=== PATIENT | male | born 1975 | race Caucasian/White ===

== ENCOUNTER 2024-07-26 00:45 | Day surgery (SDC) | payer OTHER, SELFPAY ==
[2024-07-19 09:23] VITALS: BMI 32.1
[2024-07-26 09:46] VITALS: BP 146/104; PULSE 112; RESP 18; TEMP 36.1; O2SAT 100; BMI 30.7
[2024-07-26] MEDS: LACTATED RINGERS 1,000 ML 150 ML IV CONT (09:54)
[2024-07-26 09:59] LABS: Glucose Point of Care 143 mg/dl (65-105)
--- NOTE | 2024-07-26 10:13 | P.PNAN_ITS ---
Anes - Initial Pre Proc Eval Procedure: Operation Date: 07/26/24 11:00 Proposed Procedures p Screening Colonoscopy - Claudio Lund MD Date/Time: 07/26/24 10:13 Surgeon: Claudio Lund MD Pre Op Diagnosis: screening colon Patient Data Age: 49 Gender: M Height: 1.88 m Weight: 108.5 kg Last Vital Signs Temp 97 F L 07/26/24 09:46 Pulse 112 H 07/26/24 09:46 Resp 18 07/26/24 09:46 BP 146/104 H 07/26/24 09:46 Pulse Ox 100 07/26/24 09:46 O2 Del Method Room Air 07/26/24 09:46 Allergies Allergy/AdvReac Type Severity Reaction Status Date / Time No Known Allergies Allergy Verified 07/26/24 09:45 Home Medications ?Medication ?Instructions ?Recorded ?Confirmed ?Type blood-glucose meter (Accu-Chek #1 ea 02/22/23 01/29/24 Rx Guide Glucose Meter) blood sugar diagnostic (Accu-Chek #100 ea 05/19/23 01/29/24 Rx Guide test strips) empagliflozin 10 mg tablet 10 mg PO DAILY #30 tabs 01/26/24 07/26/24 Rx (Jardiance) lancets (Accu-Chek Softclix #200 ea 01/26/24 01/29/24 Rx Lancets) metformin 500 mg tablet See Rx Instructions PO .COMPLEX 04/22/24 07/26/24 Rx #90 tabs citalopram 20 mg tablet See Rx Instructions .Route 07/10/24 07/26/24 Rx .COMPLEX #90 tabs lisinopril 40 mg tablet See Rx Instructions .Route 07/10/24 07/26/24 Rx .COMPLEX #90 tabs amlodipine 5 mg tablet 5 mg PO DAILY #90 tabs 07/12/24 07/26/24 Rx fenofibrate 54 mg tablet See Rx Instructions .Route 07/24/24 07/26/24 Rx .COMPLEX #90 tabs Laboratory Tests 07/26/24 09:56 POC Capillary Glucose 143 H mg/dl (65-105) Patient hx anesthesia problems: none Family hx anesthesia problems: none Results Review: All pre-operative results and documents have been reviewed as part of the pre- operative evaluation. [facility] Past Medical History Medical History Anxiety Diabetes HLD (hyperlipidemia) Hypertension Paronychia Family History Family History Mother Family history of suicide, Onset Age: 30 Family history of gastrointestinal disorder, Onset Age: 30 Patient's mother is , Onset Age: 30 Father Family history of allergic disorder Family history of diabetes mellitus in first degree relative Other Diabetes mellitus Family history of malignant neoplasm Hypertension Social History Social History (Updated 08/29/22 @ 16:29 by Ashley Romo CMA) Smoking status: Never smoker Second hand tobacco smoke exposure: No Alcohol intake: current Alcohol use details: 1 drink a month Substance use: never Substance use type: does not use Lack of Transportation: No Lack of Food: Never True Current Housing: I Have Housing Concerned About Future Housing: No Difficulty Paying Gas/Electric Bills: No Difficulty Paying for Meds: No Currently Unemployed: No Education: Bachelor's Degree Difficulty w/ Childcare or Family Care: No Living arrangements: with family Occupation/Education: occupation Gender identity (if verbalized by the patient): Male Spiritual care concerns: No Agree to blood products: No Anes - Eval Final PreProcedure Day of Procedure 07/26/24 10:13 Patient weight: obese Heart: regular rate and rhythm Lungs: clear to auscultation Airway: Mallampati scale class II Neurological: alert and oriented Last oral intake: >/= 8 hours ASA classification: III Emergent: no Anesthetic plan: proceed Anesthesia type and monitoring: general GIVS and standard monitoring Results Review: All pre-operative results and documents have been reviewed as part of the pre- operative evaluation. Informed Consent: The patient's anesthetic plan and its attendant risks and benefits were discussed with the patient/family/POA. Questions were solicited and answers provided to the satisfaction of the patient/family/POA.
--- NOTE | 2024-07-26 10:32 | PM.HPGS ---
History of Present Illness History of Present Illness Consent: Risks, benefits, and alternatives have been discussed and questions answered. Patient agrees to proceed with procedure. Chief complaint: screening colon Narrative: Cruz Bond is a 49 year old male here for first screening colonoscopy Review of Systems Review of Systems: All systems reviewed & are unremarkable except as noted in HPI and below PMFSH Past Medical History Medical History (Updated 07/26/24 @ 10:32 by Claudio Lund MD) Colon cancer screening Paronychia HLD (hyperlipidemia) Diabetes Hypertension Anxiety Family History Family History Mother Family history of suicide, Onset Age: 30 Family history of gastrointestinal disorder, Onset Age: 30 Patient's mother is , Onset Age: 30 Father Family history of allergic disorder Family history of diabetes mellitus in first degree relative Other Diabetes mellitus Family history of malignant neoplasm Hypertension Social History Social History (Updated 08/29/22 @ 16:29 by Ashley Romo [facility]) Smoking status: Never smoker Second hand tobacco smoke exposure: No Alcohol intake: current Alcohol use details: 1 drink a month Substance use: never Substance use type: does not use Lack of Transportation: No Lack of Food: Never True Current Housing: I Have Housing Concerned About Future Housing: No Difficulty Paying Gas/Electric Bills: No Difficulty Paying for Meds: No Currently Unemployed: No Education: Bachelor's Degree Difficulty w/ Childcare or Family Care: No Living arrangements: with family Occupation/Education: occupation Gender identity (if verbalized by the patient): Male Spiritual care concerns: No Agree to blood products: No Meds Home Medications and Allergies Home Medications ?Medication ?Instructions ?Recorded ?Confirmed ?Type blood-glucose meter (Accu-Chek #1 ea 02/22/23 01/29/24 Rx Guide Glucose Meter) blood sugar diagnostic (Accu-Chek #100 ea 05/19/23 01/29/24 Rx Guide test strips) empagliflozin 10 mg tablet 10 mg PO DAILY #30 tabs 01/26/24 07/26/24 Rx (Jardiance) lancets (Accu-Chek Softclix #200 ea 01/26/24 01/29/24 Rx Lancets) metformin 500 mg tablet See Rx Instructions PO .COMPLEX 04/22/24 07/26/24 Rx #90 tabs citalopram 20 mg tablet See Rx Instructions .Route 07/10/24 07/26/24 Rx .COMPLEX #90 tabs lisinopril 40 mg tablet See Rx Instructions .Route 07/10/24 07/26/24 Rx .COMPLEX #90 tabs amlodipine 5 mg tablet 5 mg PO DAILY #90 tabs 07/12/24 07/26/24 Rx fenofibrate 54 mg tablet See Rx Instructions .Route 07/24/24 07/26/24 Rx .COMPLEX #90 tabs Allergies Allergy/AdvReac Type Severity Reaction Status Date / Time No Known Allergies Allergy Verified 07/26/24 09:45 Vital Signs Vital Signs - 24 hr 07/26/24 09:46 Temperature 97 F L Pulse Rate 112 H Respiratory Rate 18 Blood Pressure 146/104 H Pulse Oximetry 100 Oxygen Delivery Room Air Exam Const: General: comfortable and no acute distress HENMT: Face/Nose/Sinus: Normal nares present Eyes: General: appearance normal, both eyes and all related structures Neck: Neck: no JVD Resp: Auscultation: clear to auscultation bilaterally Cardio: Rate: regular rate Rhythm: regular rhythm GI: Inspection: non-distended GI Palp: Yes Soft to palpation Skin: General skin exam: normal color Neuro: Speech: normal speech Extrem: General: normal to inspection Psych: Mental Status: mental status grossly normal Assessment and Plan Assessment and plan (1) Colon cancer screening: Code(s): Z12.11 - Encounter for screening for malignant neoplasm of colon Status: Acute Assessment and Plan: colonoscopy
[2024-07-26 10:45] VITALS: BP 127/91; PULSE 98; RESP 18; O2SAT 99
[2024-07-26 10:55] VITALS: BP 115/73; PULSE 93; RESP 16; O2SAT 97
[2024-07-26 11:05] VITALS: BP 137/83; PULSE 92; RESP 18; O2SAT 98
== END 2024-07-26 11:20 | disposition home or self-care (01) ==
PROVIDERS: PCP Family Medicine; Referring Provider Student in an Organized Health Care Education/Training Program; Visit Provider Internal Medicine Gastroenterology
PROC: 0DJD8ZZ Inspection of Lower Intestinal Tract, Via Natural or Artificial Opening Endoscopic (ICD-10-PCS; CPT 45378; principal; 2024-07-26 11:00)
DX: Z12.11 Encounter for screening for malignant neoplasm of colon (principal); K64.8 Other hemorrhoids; E11.9 Type 2 diabetes mellitus without complications; E66.9 Obesity, unspecified; Z68.30 Body mass index [BMI] 30.0-30.9, adult
CPT/HCPCS: 45378; 82948; J2003; J2704; J7120